=== PATIENT | female | born 1970 | race Caucasian/White ===

== ENCOUNTER → 2016-09-17 | Outpatient (CLI) | payer BC ==
--- NOTE | 2016-09-17 11:06 | MA ---
Screening Digital Mammogram With Tomosynthesis Clinical Indications: Routine screening. Technique: Standard digital cephalocaudal and tomosynthesis mediolateral oblique projections are obt ained. The digital images were processed by the [employer] computer aided detection system. Comparison: August 2015, June 2013, June 2012 and January 2009 Breast density: B; There are scattered fibroglandular densities. Findings: CAD was reviewed. No suspicious findings are identified. Impression: Negative mammogram. BI-RADS 1. Recommendation: Routine screening is recommended in one year. [facility] will send a result letter to the patient. Negative mammography should not preclude additional workup of a clinically suspicious finding. The patient's information is entered into a reminder system with a target due date for her next mammo gram.
== END ==
LOC: FIMAGING 08:49
DX: Z12.31 Encounter for screening mammogram for malignant neoplasm of breast (principal)
CPT/HCPCS: G0202

== ENCOUNTER → 2017-06-28 | Outpatient (CLI) | payer BC | LOC: FIMAGING 08:03 | PROVIDERS: ATTEND Advanced Practice Midwife | DX: O09.522 Supervision of elderly multigravida, second trimester (principal); O09.812 Supervision of pregnancy resulting from assisted reproductive technology, second trimester; O26.872 Cervical shortening, second trimester; Z3A.19 19 weeks gestation of pregnancy ==

== ENCOUNTER → 2017-07-04 | Outpatient (CLI) | payer BC | LOC: FIMAGING 09:40 | PROVIDERS: ATTEND Obstetrics & Gynecology | DX: O09.522 Supervision of elderly multigravida, second trimester (principal); O09.812 Supervision of pregnancy resulting from assisted reproductive technology, second trimester; O26.872 Cervical shortening, second trimester; Z3A.20 20 weeks gestation of pregnancy ==

== ENCOUNTER → 2017-07-19 | Outpatient (CLI) | payer BC | LOC: FIMAGING 07:41 | PROVIDERS: ATTEND Obstetrics & Gynecology | DX: O09.522 Supervision of elderly multigravida, second trimester (principal); O09.812 Supervision of pregnancy resulting from assisted reproductive technology, second trimester; O26.872 Cervical shortening, second trimester; Z3A.22 22 weeks gestation of pregnancy ==

== ENCOUNTER → 2017-07-26 | Outpatient (CLI) | payer BC | LOC: FIMAGING 15:20 | PROVIDERS: ATTEND Obstetrics & Gynecology | DX: O09.522 Supervision of elderly multigravida, second trimester (principal); O09.812 Supervision of pregnancy resulting from assisted reproductive technology, second trimester; O26.872 Cervical shortening, second trimester; Z3A.40 40 weeks gestation of pregnancy ==

== ENCOUNTER 2017-11-04 10:30 | Inpatient (IN) | payer BC ==
[2017-11-04] MEDS ORDERED: ONDANSETRON 4 MG/2 ML VIAL ONE (11:29)
[2017-11-04] MEDS ORDERED: ACETAMINOPHEN 500 MG TAB ONE (16:27)
--- NOTE | 2017-11-14 17:11 | GHP ---
[f rep st] PREOP HISTORY AND PHYSICAL DATE OF ADMISSION: 11/15/2017 ADMITTING DIAGNOSIS: 1. Intrauterine at 39 weeks and 5 days. 2. Advanced maternal age. HISTORY OF PRESENT ILLNESS: Patient is a 47-year-old, 3, para 1-0-1-1, at 39 and 5 weeks with estimated due date 11/17/2017, by IVF and embryo transfer on 03/01/2017. The patient presents to Labor and Delivery for induction of labor secondary to advanced maternal age. The patient was checked in the office yesterday, and has a favorable cervix at 3 cm, 70%, -2. She had her membranes swept. She comes into L&D for an induction of labor with Pitocin. Patient states good movement. Denies any leakage of fluid, but notes some bloody discharge in her underwear. She states irregular contractions throughout the night. The patient has good care at [facility], and presented in her first trimester. She underwent IVF due to male factor, advanced maternal age, and used a 22-year-old donor egg. is complicated by advanced maternal age. She had pre-implantation genetic testing done that was negative. She declined NIPT or invasive testing during this . The patient did have a level 2 scan with perinatology showing normal anatomy. echo was normal as well. She does have a previous child with trisomy 21. She had a shortened cervix 1.9 to 2.4 cm on 20 week anatomy scan and was started on vaginal progesterone. She continued to take the vaginal progesterone until 36 weeks. Growth scan in the third trimester revealed normal growth with an estimated growth at 69%. Patient did develop anemia of and tolerating iron. She received Tdap during the . She had twice weekly NSTs in the office, and had reassuring testing as well as weekly fluid checks, which also was reassuring. GBS culture is negative. PAST OB HISTORY: In May 2014, she delivered a viable male via vaginal delivery, weighing 5 pounds 15 ounces at 37 weeks and 2 days. Baby noted to have Down syndrome. In July 2015, she had a 6 week abnormal , possible ectopic , and was treated with methotrexate. GYNECOLOGIC HISTORY: Age of menarche 16. Cycles every 28 days for 3 to 4 days. She had a positive test 03/14/2017. The patient denies any abnormal Pap smears or any exposure to sexually transmitted diseases. 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 PAST MEDICAL HISTORY: Asthma. PAST SURGICAL HISTORY: IVF; Left forearm fracture at 12-years of age after sledding; wisdom teeth extraction. MEDICATIONS: Include: 1. vitamins. 2. DHA. 3. Albuterol. 4. Baby aspirin. 5. Calcium. 6. Vitamin B complex. 7. Vitamin D. 8. Iron. FAMILY HISTORY: Paternal grandmother, esophageal cancer secondary to tobacco use, late 50s; paternal grandfather pancreatic cancer, in 60s. SOCIAL HISTORY: Patient is . 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 She denies any alcohol, tobacco or illicit drug use. REVIEW OF SYSTEMS: 10-point Review of Systems is negative. Pertinent positives noted in HPI. LABS: B-positive, antibody negative. RPR nonreactive. Rubella immune. Hepatitis B surface antigen negative. HIV negative. Varicella immune. Pap was normal 09/2016. H and H 12.4 and 36.2. 1 hour Glucola 108. GBS culture negative. Parvo virus, positive IgG, negative IgM. PHYSICAL EXAMINATION: VITAL SIGNS: On admission, vital signs are stable. GENERAL: Patient is a well-nourished, well-developed female, alert and oriented x3. No apparent distress. CARDIOVASCULAR: Regular rate and rhythm. LUNGS: Clear to auscultation bilaterally. ABDOMEN: Gravid, soft, nontender. PELVIC: Deferred. Yesterday on exam she was 3 cm dilated, 75% effaced, -2 station. EXTREMITIES: Normal to inspection without calf tenderness or edema. heart tones show Category I tracing with baseline at 40 bpm, positive accelerations, no decels, moderate variability. On toco, there are occasional contractions. ASSESSMENT: Patient is a 47-year-old, 3, para 1-0-1-1, at 39 and 5/7 weeks for induction of labor secondary to advanced maternal age. PLAN: 1. Admit to Labor and Delivery. 2. Induction of labor with Pitocin per protocol. 3. GBS is negative. No prophylactic antibiotics needed. 4. Epidural upon request. 5. Anticipate normal spontaneous vaginal delivery. /[id number]/MODL MTDD
[2017-11-15] MEDS ORDERED: LR 500 ML IV PRN (06:33)
[2017-11-15] MEDS ORDERED: OLIVE OIL 118 ML BTL MISC PRN (06:34)
[2017-11-15] MEDS ORDERED: EPSOM SALT 454 GM TP PRN (06:34)
[2017-11-15] MEDS ORDERED: LR 1,000 ML IV PRN (06:34)
[2017-11-15] MEDS ORDERED: TERBUTALINE SULFATE 1 MG/ML VIAL IV PRN (06:34)
[2017-11-15] MEDS ORDERED: OXYTOCIN 20 UNIT in LR 1,000 ML IV PRN (06:34)
[2017-11-15] MEDS ORDERED: MISOPROSTOL 200 MCG TAB PR PRN (06:34)
[2017-11-15] MEDS ORDERED: OXYTOCIN 30 UNIT in NS 500 ML IV SCH (06:45)
[2017-11-15 08:09] LABS: PLATELET COUNT 264 10^3/uL (150-400)
[2017-11-15] MEDS ORDERED: OXYTOCIN 10 UNIT/ML VIAL ONE (09:42)
[2017-11-15] MEDS ORDERED: AMMONIA AROMATIC 1 EACH AMP IH ONE (09:44)
[2017-11-15] MEDS ORDERED: LIDOCAINE 1% 300 MG/30 ML SDV ONE (09:49)
--- NOTE | 2017-11-15 10:53 | PDMN ---
Medical Necessity Medical necessity: Patient meets inpatient criteria per physician note, likely MCG [id number] Vaginal Delivery, after IOL.
[2017-11-15] MEDS ORDERED: fentaNYL 100 MCG/2 ML INJ ONE (12:04)
[2017-11-15] MEDS ORDERED: BUPIVACAINE 0.25% 30 ML SDV ONE (12:04)
[2017-11-15] MEDS ORDERED: PHENYLEPHRINE HCL 100 MCG/ML SYR ONE (12:04)
[2017-11-15] MEDS ORDERED: ONDANSETRON 4 MG/2 ML VIAL IVP PRN (12:55)
[2017-11-15] MEDS ORDERED: PHENYLEPHRINE HCL 100 MCG/ML SYR IVP PRN (12:55)
[2017-11-15] MEDS ORDERED: LR 500 ML IV SCH (13:00)
[2017-11-15] MEDS ORDERED: fentaNYL 2MCG/ML/BUP 0.1% RTU 100 ML EP SCH (13:00)
--- NOTE | 2017-11-15 13:21 | POSTANESTH ---
Post Anesthetic Evaluation Cardiovascular Status: Normal, Stable, Similar to Pre-Op Cond Respiratory Status: Normal, Stable, Similar to Pre-op Cond. Level of Consciousness/Mental Status: Can Participate in Eval, Alert and Oriented Pain Control: Adequate, Prn Tx Ordered Nausea/Vomiting Control: Adequate, Prn Tx Ordered Complications Possibly Related to Anesthesia: None Noted
[2017-11-15] MEDS ORDERED: FENT2MCG/ML&BUP0.1% 1 EA, fentaNYL 200 MCG, BUPIVACAINE 0.5% 20 ML in NS 100 ML IV SCH ×2 (13:25→13:30)
--- NOTE | 2017-11-15 13:26 | PREANESOB ---
Obstetric Pre-Anesthesia Info - General Info Proposed Procedure: Labor and delivery : 3 Para: 1 ANTONELLA: 11/17/17 Gestational Age: 39 week(s) and 5 day(s) - Info Status: Full Term Monitors: External FHR Baseline (bpm): 120 FHR Pattern: Reassuring - Labor Status Cervical Dilation per last OB SVE: 3 Pitocin: In Use Indications for Labor Analgesia: Induction of Labor, Pain Control Labor Epidural: Proposed Anesthesia ROS: Prior labor epidural. Allergies/Adverse Reactions: Allergy/AdvReac Type Severity Reaction Status Date / Time No Known Allergies Allergy Unverified 11/04/17 10:55 Home Medications: Medication Instructions Recorded Aspirin 11/15/17 Calcium Carbonate [Calcium] PO DAILY 11/15/17 Ferrous Fumarate/Folic Acid 1 PO DAILY 11/15/17 Dha 1 tab PO DAILY 11/15/17 Visit Medications: Generic Name Dose Route Start Last Admin Trade Name Freq PRN Reason Stop Dose Admin Diphenhydramine HCl 25 - 50 mg 11/15/17 12:55 Benadryl Injection IVP 05/14/18 12:54 Q6HRS PRN Itching Lactated Ringer's 500 mls @ 500 mls/hr 11/15/17 06:33 Lr IV 11/16/17 06:33 PRN PRN Maternal Hypotension Oxytocin 30 unit/ Sodium 503 mls @ 0 mls/hr 11/15/17 06:45 11/15/17 08:13 Chloride IV 05/14/18 06:44 503 mls CONT JENNIFER Administration Protocol Per Protocol Lactated Ringer's 1,000 mls @ 0 mls/hr 11/15/17 06:34 11/15/17 08:13 Lr IV 11/16/17 06:33 1,000 mls PRN PRN Administration SEE PROTOCOL CONDITIONS Protocol Per Protocol Oxytocin 20 unit/ Lactated 1,002 mls @ 150 mls/hr 11/15/17 06:34 Ringer's IV PRN PRN Post- bleeding Fentanyl/Bupivacaine HCl 100 mls @ 0 mls/hr 11/15/17 13:00 Fentanyl/Bupivacaine/Ns 2 Mcg/Ml 0.1% (Premix EP 11/25/17 12:59 CONT JENNIFER Protocol As Directed Lactated Ringer's 500 mls @ 0 mls/hr 11/15/17 13:00 Lr IV 05/14/18 12:59 CONT JENNIFER As Directed Ibuprofen 600 mg 11/15/17 06:34 Motrin PO 05/14/18 06:33 Q6HRS PRN post , inflammation Magnesium Sulfate 454 gm 11/15/17 06:34 Epsom Salt TP 05/14/18 06:33 Q1H PRN perineal discomfort Misoprostol 800 - 1,000 mcg 11/15/17 06:34 Cytotec TX ONCE PRN Vaginal Atony/Bleeding [place] Oil 118 ml 11/15/17 06:34 Sweet Oil MISC 05/14/18 06:33 ONCE PRN perineal massage Ondansetron HCl 4 mg 11/15/17 12:55 Zofran IVP 11/16/17 12:54 Q4HRS PRN Nausea/Vomiting, Can't Take PO Phenylephrine HCl 100 mcg 11/15/17 12:55 Neosynephrine IVP 05/14/18 12:54 .Q2M PRN Hypotension Terbutaline Sulfate 0.25 mg 11/15/17 06:34 Brethine IV 05/14/18 06:33 ONCE PRN Tachysystole Discontinued Medications Generic Name Dose Route Start Last Admin Trade Name Freq PRN Reason Stop Dose Admin Acetaminophen Confirm 11/04/17 16:27 Tylenol Administered 11/04/17 16:28 Dose 1,000 mg .ROUTE .STK-MED ONE Ammonia (Aromatic Spirit) Confirm 11/15/17 09:44 Ammonia Aromatic Administered 11/15/17 09:45 Dose 1 each IH .STK-MED ONE Bupivacaine HCl Confirm 11/15/17 12:04 Sensorcaine 0.25% Sdv Administered 11/15/17 12:05 Dose 30 ml .ROUTE .STK-MED ONE Fentanyl Confirm 11/15/17 12:04 Sublimaze Administered 11/15/17 12:05 Dose 100 mcg .ROUTE .STK-MED ONE Lidocaine HCl Confirm 11/15/17 09:49 Lidocaine Hcl 1% Administered 11/15/17 09:50 Dose 300 mg .ROUTE .STK-MED ONE Ondansetron HCl Confirm 11/04/17 11:29 Zofran Administered 11/04/17 11:30 Dose 4 mg .ROUTE .STK-MED ONE Oxytocin Confirm 11/15/17 09:42 Pitocin Administered 11/15/17 09:43 Dose 40 unit .ROUTE .STK-MED ONE Phenylephrine HCl Confirm 11/15/17 12:04 Neosynephrine Administered 11/15/17 12:05 Dose 1,000 mcg .ROUTE .STK-MED ONE - Anesthesia History Response to Local Anesthetics: Normal Anesthesia & Operative History: No Prior Problems - Social History Substance Use/Abuse: Denies - Vital Signs Blood Pressure: 130/84 Heart Rate: 82 Respiratory Rate: 18 Height/Weight (Nursing): Height 162.56 cm Weight 65.771 kg - Focused Exam Neck exam: FROM Mallampati Score: Class 1 Mouth exam: normal dental/mouth exam Pulmonary: no respiratory distress Cardiovascular: regular rate and rhythym Labs: 11/15/17 07:50 Patient ABO/Rh B POSITIVE 11/15/17 07:50 - Plan Anesthetic Plan: CSE Consent Signed and on Chart: Yes Patient/Guardian Understands and Agrees to Plan: Yes Urgent/Emergent Case: Mimi gutierrez completed preop but documented later for safe timely pt care
--- NOTE | 2017-11-15 14:23 | OBDEL ---
Info Type: Vaginal Presentation at Delivery: Vertex L&D Analgesia/Anesthesia Type: Epidural GBS+: No Intrapartum Medications: Generic Name Dose Route Start Last Admin Trade Name Freq PRN Reason Stop Dose Admin Oxytocin 30 unit/ Sodium 503 mls @ 0 mls/hr 11/15/17 06:45 11/15/17 08:13 Chloride IV 05/14/18 06:44 503 mls CONT JENNIFER Administration Protocol Per Protocol Lactated Ringer's 1,000 mls @ 0 mls/hr 11/15/17 06:34 11/15/17 08:13 Lr IV 11/16/17 06:33 1,000 mls PRN PRN Administration SEE PROTOCOL CONDITIONS Protocol Per Protocol Indications for Delivery: Elective (IOL secondary to AMA) Vaginal Delivery - Delivery Provider Delivery Physician/CNM: Tami Nichole - Labor and Delivery Onset of Contractions Date: 11/15/17 Onset of Contractions Time: 09:12 Onset of Contractions Type: Induced Rupture of Membranes Date: 11/15/17 Rupture of Membranes Time: 13:00 Rupture of Membranes Type: Spontaneous Amniotic Fluid Color: Clear Dilation Complete Date: 11/15/17 Dilation Complete Time: 13:00 Placenta Delivery Date: 11/15/17 Placenta Delivery Time: 14:04 Total Hours of Labor: 4 Episiotomy: Midline (no extensions) Repair: 3-0, Vicryl Vaginal Sponge Count Correct: Yes Vaginal Needle Count Correct: Yes Vaginal Sweep Performed: Yes EBL: 350 Delivery Events: Nuchal Cord (x 1 - loose and slipped on perineum) Delivery Comment: Uncomplicated - Medications Labor Augmentation/Induction Methods Used: Pitocin Labor Augmentation/Induction Indication: Other (Specify) (AMA) [place] Data ANTONELLA: 11/17/17 Gestational Age: 39 week(s) and 5 day(s) Murphy Delivery Date: 11/15/17 Delivery Time: 13:54 Sex of : Female Score (1 Min): 8 Score (5 Min): 9 ICD10 Worksheet Patient Problems: Problems Problem Status Onset (spontaneous vaginal delivery) Acute AMA (advanced maternal age) multigravida 35+ Acute
[2017-11-15] MEDS ORDERED: SIMETHICONE 80 MG TAB CHEW PO PRN (14:30)
[2017-11-15] MEDS ORDERED: IBUPROFEN 600 MG TAB PO PRN (14:30)
[2017-11-15] MEDS ORDERED: HYDROCORTISONE 0.5% CREAM TP PRN (14:30)
[2017-11-15] MEDS ORDERED: ACETAMINOPHEN 325 MG TAB PO PRN (14:37)
[2017-11-15] MEDS: IBUPROFEN 600 MG TAB PO PRN ×2 (15:27→21:30)
[2017-11-15] MEDS: HYDROCODONE/APAP 5/325 TAB PO PRN ×2 (16:30→20:13)
[2017-11-16] MEDS: HYDROCODONE/APAP 5/325 TAB PO PRN ×5 (00:23→21:41)
[2017-11-16] MEDS: IBUPROFEN 600 MG TAB PO PRN ×3 (04:15→17:28)
[2017-11-16] MEDS: DOCUSATE SODIUM 100 MG CAP PO PRN ×2 (09:17→21:42)
--- NOTE | 2017-11-16 14:09 | OBPP ---
Progress Note Assessment/Plan: Assessment:nipples intake well with support ff@u scant rubra lochia pain well managed with ibuprofen voiding without difficulty elevated bp PIH labs today Plan:pp day 1 expectant management 11/16/17 14:07 Subjective/ Course: 11/16/17 14:07 Doing well denies difficulties. with support Objective: 11/15/17 07:50 Patient ABO/Rh B POSITIVE 11/15/17 07:50 Temp Pulse Resp BP Pulse Ox 36.7 C 71 18 133/91 H 96 11/16/17 08:30 11/16/17 08:30 11/16/17 08:30 11/16/17 08:30 11/16/17 08:30 Uterine Position/Fundal Height: At Umbilicus Uterine Tone: Firm Physical Exam - Physical Exam General Appearance: WD/WN, alert, no apparent distress Abdomen: other (ff@u scant rubra lochia) Extremities: normal range of motion, Rodrick's sign (negative bilaterally) DTR- Lower Extremities: Knee (R): 1+, Knee (L): 1+ (no clonus) Skin: normal color, warm/dry Neuro/Psych: no motor/sensory deficits, alert, normal mood/affect, oriented x 3
[2017-11-16 17:58] LABS: PLATELET COUNT 251 10^3/uL (150-400)
[2017-11-17] MEDS: IBUPROFEN 600 MG TAB PO PRN ×2 (00:17→06:32)
[2017-11-17 08:14] VITALS: BP 131/89; PULSE 89; RESP 17; TEMP 97.9; O2SAT 96
[2017-11-17] MEDS ORDERED: IRON POLYSAC/IRON HEME 28 MG TAB PO SCH (09:00)
[2017-11-17] MEDS ORDERED: MEASLES,MUMPS&RUBELLA VACC/PF 0.5 ML VIAL SC ONE (09:24)
--- NOTE | 2017-11-17 09:25 | OBGCSDC ---
General Delivery Information - General Info : 3 Para: 1 Abortions: 1 Type: Vaginal L&D Analgesia/Anesthesia Type: Epidural Admission Date: 11/15/17 Labs: Patient ABO/Rh B POSITIVE 11/15/17 07:50 Hct 30.8 % (38.0-47.0) L 11/16/17 17:30 - Hospital Course : 11/16/17 14:07 Doing well denies difficulties. with support 11/17/17 0900 S) Pt doing well, reports min pain and bleeding. she is ambulating and voiding without difficulty. She is . She desires discharge home today. O) VSS, afebrile constitutional: WNWF, A&Ox3 HEENT: normocephalic, atraumatic, supple Heart: RRR, No murmur Chest: CTA-B Abdomen: Soft, nontender Uterus: Firm at U-2 Lochia: Minimal rubra Perineum: Intact, healing well Extremities: Trace edema, and negative Rodrick's sign Neuro: Grossly normal A) [id number] s/p PPD#2 P) Discharge home today Continue Pelvic rest x6wks Discussed danger signs (infection, preeclampsia, depression, heavy bleeding, etc ) RTO in 4/6 weeks Vaginal - Delivery Provider Delivery Physician/CNM: Tami Nichole - Diagnosis Labor: Induced Rupture of Membranes Type: Spontaneous Amniotic Fluid Color: Clear Episiotomy: Midline (no extensions) Repair: 3-0, Vicryl Delivery Events: Nuchal Cord (x 1 - loose and slipped on perineum) - Delivery EBL: 350 [place] Data ANTONELLA: 11/17/17 Gestational Age: 40 week(s) and 0 day(s) Murphy Delivery Date: 11/15/17 Delivery Time: 13:54 Sex of : Female [place] Weight (gm): 2970 kg Score (1 Min): 8 Score (5 Min): 9 Discharge Information - Discharge Information Prescriptions: Ibuprofen [Motrin (*)] 600 mg PO Q6HRS PRN #30 tab PRN Reason: post , inflammation Condition: Good Instruction/Follow Up: Four Weeks, Six Weeks
[2017-11-17] MEDS: HYDROCODONE/APAP 5/325 TAB PO PRN (09:56)
[2017-11-17] MEDS: DOCUSATE SODIUM 100 MG CAP PO PRN (09:56)
== END 2017-11-17 11:25 | disposition home or self-care (01) | DRG 775 ==
LOC: FLD 10:30 → UNDOADMIN 10:30 → FLD 11-15 06:09 → FOB 11-15 17:00
PROVIDERS: ADMIT Obstetrics & Gynecology; ATTEND Obstetrics & Gynecology
PROC: 0W8NXZZ Division of Female Perineum, External Approach (ICD-10-PCS; principal; 2017-11-15)
PROC: 0HQ9XZZ Repair Perineum Skin, External Approach (ICD-10-PCS; principal; 2017-11-15)
PROC: 10E0XZZ Delivery of Products of Conception, External Approach (ICD-10-PCS; principal; 2017-11-15)
DX: O69.81X0 Labor and delivery complicated by cord around neck, without compression, not applicable or unspecified (principal); Z3A.39 39 weeks gestation of pregnancy; Z37.0 Single live birth
CPT/HCPCS: J2370; J2405; J2590; J3010; J3105

== ENCOUNTER 2017-11-04 10:30 | Observation (INO) | payer BC ==
[2017-11-04] MEDS ORDERED: LOPERAMIDE HCL 2 MG CAP PO PRN (11:05)
[2017-11-04] MEDS ORDERED: LR 1,000 ML IV SCH (11:30)
[2017-11-04] MEDS: ONDANSETRON 4 MG/2 ML VIAL IVP PRN ×2 (11:45→19:19)
[2017-11-04] MEDS ORDERED: PROMETHAZINE HCL 25 MG/ML INJ IVP PRN (13:07)
--- NOTE | 2017-11-04 13:54 | GHP ---
[f rep st] HISTORY AND PHYSICAL DATE OF ADMISSION: 11/04/2017 ADMITTING DIAGNOSIS: 1. Intrauterine at 38 weeks and 1 day. 2. Nausea, vomiting and diarrhea. 3. Contractions. HISTORY OF PRESENT ILLNESS: The patient is a 47-year-old, 3, para 1-0-1 -1, at 38 weeks and 1 day with estimated due date 11/27/17 based on IVF dating and embryo transfer with donor egg 03/01/17. The patient presents to the office today with complaints of nausea, vomiting, and diarrhea since last night. She has been up all night with diarrhea about every 20 minutes. She is unable to keep any food down. She did not eat any breakfast this morning, but took some sips of water and was unable to keep that down. She also feels very crampy. She is unsure if this is a GI virus or if it is early labor. Denies any bleeding or leakage of fluid. States there is good movement. The patient came into the office today and was evaluated. She was scheduled for an NST and an ultrasound to check BRYCE. The NST was reactive, category 1 strip. She was mishel every 2-3 minutes on toco. She states she can now feel contractions and rates them 6/10. On exam, she is 1-2 cm, 50%, -3, posterior. The patient was reassured. We discussed contractions likely due to dehydration, but will send patient to Labor and Delivery for observation. The patient has good care with [facility] and presented in her first trimester. The is complicated by AMA and IV conception. She had negative preimplantation genetic testing. Patient had Level II ultrasound with MFM and had normal anatomy scan, but short cervical length at 1.9-2.4 and was started on vaginal progesterone which she took until 36 weeks. She had reassuring testing with twice weekly NSTs and weekly fluid checks that were normal. She did receive Tdap and flu vaccine. GBS culture is negative PAST OB HISTORY: In May 2014, she delivered a viable male infant, at 37 weeks 2 days, weighing 5 pounds 15 ounces via vaginal delivery. Baby boy was born with Down syndrome. In 07/2015, she was treated with methotrexate for an ectopic . 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 Cycles are every 28 days for 3-4 days. She has infertility and had an egg donor with embryo transfer 03/01/2017. test 03/14/2017. The patient denies a history of abnormal Pap smears or any exposure to sexually transmitted diseases. CURRENT MEDICATIONS: vitamin, baby aspirin, albuterol p.r.n., calcium , vitamin D. ALLERGIES: No known drug allergies. PAST MEDICAL HISTORY: Asthma diagnosed 27 years of age, never intubated. PAST SURGICAL HISTORY: Fractured left forearm at 12 years age, after sledding. [place] teeth extraction. FAMILY HISTORY: Paternal grandma: Esophageal cancer, smoker. Paternal grandfather: Pancreatic cancer. SOCIAL HISTORY: Patient is and lives with her , Luis Angel, and their son. 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 Denies any alcohol, tobacco, or illicit drug use during the . REVIEW OF SYSTEMS: 10-point review of systems negative. Pertinent positives included in HPI. LABS: She is B positive. Antibody negative. RPR nonreactive. Rubella immune. Hepatitis B surface antigen negative. HIV negative. Varicella immune. Pap normal 2016. H and H 12.4, 36.2. One-hour Glucola 108. GBS culture negative. ASSESSMENT: Patient is a 47-year-old, 3, para 1-0-1-1, at 38 weeks and 1 day, who presents with nausea, vomiting, and diarrhea and also uterine contractions. PLAN: 1. Admit to Labor and Delivery for observation. 2. Will give intravenous fluids to help with dehydration. 3. Continuous toco. Will see if contractions lessen after intravenous fluids, 3. Will check CMP. 4. Anti-emetics and antidiarrheal medication as needed. /[id number]/MODL MTDD
[2017-11-04] MEDS ORDERED: MISOPROSTOL 200 MCG TAB PR PRN (16:31)
[2017-11-04] MEDS ORDERED: EPSOM SALT 454 GM TP PRN (16:31)
[2017-11-04] MEDS ORDERED: OLIVE OIL 118 ML BTL MISC PRN (16:31)
[2017-11-04] MEDS ORDERED: OXYTOCIN 20 UNIT in LR 1,000 ML IV PRN (16:31)
[2017-11-04] MEDS ORDERED: LR 1,000 ML IV PRN (16:31)
[2017-11-04] MEDS ORDERED: TERBUTALINE SULFATE 1 MG/ML VIAL IV PRN (16:31)
[2017-11-04] MEDS ORDERED: IBUPROFEN 600 MG TAB PO PRN (16:31)
[2017-11-04] MEDS ORDERED: ACETAMINOPHEN 500 MG TAB PO PRN (16:34)
--- NOTE | 2017-11-04 17:31 | OBPROG ---
Labor Progress Note Assessment/Plan: Assessment: 47 y/o at 38 1/7 weeks with N/V/D, likely gastroenteritis and uterine contractions Plan: Pt is s/p 2 L IVFs and still mishel regularly SVE 70/-2, bulging - suspect early labor CMP wnl, no electrolyte abnormalities Flu swab collected; Tmax of 38, pt given Tylenol Will reassess for cervical change in a few hours Pt desires an epidural 11/04/17 17:31 Subjective/Intrapartum Course: 11/04/17 17:30 Pt is not feeling much better after IVFs. Still having some nausea, no relief with Zofran or Phenergan. Denies any further diarrhea and no vomiting. She was able to keep down sips of water to take Tylenol. Pt endorses chills and +fever. States ctx's are uncomfortable and she is having low back pain. No LOF or VB. Good FM noted. 11/04/17 17:32 Objective: 11/04/17 11:30 Total Bilirubin 0.8 mg/dL (0.1-1.4) 11/04/17 11:30 AST 38 IU/L (14-46) 11/04/17 11:30 ALT 31 IU/L (9-52) 11/04/17 11:30 - SVE Dilation (cm): 3 Effacement (%): 75 (70) Station: -2 Membranes: Intact - Contraction Pattern Assessment Current Contraction Pattern: Regular (q2-3) - FHR Assessment Murphy FHR (bpm): 150 FHR Pattern Variability: Moderate FHR Category: 1 - AP Antepartum Course: 11/04/17 17:34 IUP @ 38 1/7 wks by IVF, FET-egg donor with N/V/D, likely gastroenteritis. Also having painful uterine contractions, early labor. GBS cx negative. Oxytocin Orders Assessment - Pre-Induction/Augmentation Assessment Gestational Age: 38 week(s) and 1 day(s) ICD10 Worksheet Patient Problems: Problems Problem Status Onset Diarrhea Acute N&V (nausea and vomiting) Acute Uterine contractions during Acute - ICD10 Problem Qualifiers (1) N&V (nausea and vomiting) (2) Diarrhea (3) Uterine contractions during
[2017-11-04 18:17] LABS: PLATELET COUNT 238 10^3/uL (150-400)
--- NOTE | 2017-11-04 20:33 | OBPROG ---
Labor Progress Note Assessment/Plan: Assessment: 47 y/o at 38 1/7 weeks with N/V/D, likely gastroenteritis and uterine contractions Plan: Ctx's have spaced out, no cervical change noted FHTs - Cat I tracing Flu swab was negative Pt is afebrile and mayra water, still some nausea Fever likely secondary to virus Pt is stable for d/c home Labor precautions given Keep scheduled appt in our office in 3 days 11/04/17 20:33 Subjective/Intrapartum Course: 11/04/17 17:30 Pt is not feeling much better after IVFs. Still having some nausea, no relief with Zofran or Phenergan. Denies any further diarrhea and no vomiting. She was able to keep down sips of water to take Tylenol. Pt endorses chills and +fever. States ctx's are uncomfortable and she is having low back pain. No LOF or VB. Good FM noted. 11/04/17 20:31 Pt feels a little better. She is not having as many ctx's and they are not as painful. No vomiting or diarrhea since she has been here on L&D. Mayra water. Good FM noted. Back pain and fever relieved with Tylenol. Objective: 11/04/17 11:30 11/04/17 11:30 Patient ABO/Rh B POSITIVE 11/04/17 16:55 Total Bilirubin 0.8 mg/dL (0.1-1.4) 11/04/17 11:30 AST 38 IU/L (14-46) 11/04/17 11:30 ALT 31 IU/L (9-52) 11/04/17 11:30 - SVE Dilation (cm): 3 Effacement (%): 75 Station: -2 Membranes: Intact - Contraction Pattern Assessment Current Contraction Pattern: Irregular - FHR Assessment Murphy FHR (bpm): 150 FHR Pattern Variability: Moderate FHR Category: 1 - AP Antepartum Course: 11/04/17 17:34 IUP @ 38 1/7 wks by IVF, FET-egg donor with N/V/D, likely gastroenteritis. Also having painful uterine contractions, ?early labor. GBS cx negative. 11/04/17 20:34 Oxytocin Orders Assessment - Pre-Induction/Augmentation Assessment Gestational Age: 38 week(s) and 1 day(s) ICD10 Worksheet Patient Problems: Problems Problem Status Onset Diarrhea Acute N&V (nausea and vomiting) Acute Uterine contractions during Acute - ICD10 Problem Qualifiers (1) N&V (nausea and vomiting) (2) Diarrhea (3) Uterine contractions during
== END 2017-11-04 20:30 | disposition home or self-care (01) ==
LOC: INTOOBSV 10:30 → FLD 10:30
PROVIDERS: ADMIT Obstetrics & Gynecology; ATTEND Obstetrics & Gynecology
DX: O99.613 Diseases of the digestive system complicating pregnancy, third trimester (principal); O62.9 Abnormality of forces of labor, unspecified; K52.9 Noninfective gastroenteritis and colitis, unspecified; O21.2 Late vomiting of pregnancy; O09.523 Supervision of elderly multigravida, third trimester; O09.813 Supervision of pregnancy resulting from assisted reproductive technology, third trimester; O99.513 Diseases of the respiratory system complicating pregnancy, third trimester; J45.909 Unspecified asthma, uncomplicated; Z3A.38 38 weeks gestation of pregnancy
CPT/HCPCS: G0378 ×2; J2405; J2550